=== PATIENT | female | born 1975 | race Hispanic/Latino ===

== ENCOUNTER → 2018-09-14 19:33 | Outpatient (ROUT) | payer SELFPAY ==
[2018-09-14 19:42] LABS: Add Manual Diff / Slide Review NO; Basophils Absolute Auto 0 /uL (0-100); Basophils Percent Auto 0.6 % (0-2); Eosinophils Absolute Auto 200 /uL (0-450); Eosinophils Percent Auto 2.5 % (2-4); Hemoglobin 12.7 g/dL (12.0-16.0); Lymphocytes Absolute Auto 2400 /uL (1100-4500); Lymphocytes Percent Auto 39.1 % (25-40); Mean Corpuscular HGB Conc 32.7 % (30-36); Mean Corpuscular Hemoglobin 30.2 PG (26-34); Mean Corpuscular Volume 92.4 fL (80-100); Monocytes Absolute Auto 400 /uL (0-900); Monocytes Percent Auto 7.2 % (3-14); Neutrophils Absolute Auto 3100 /uL (1500-7000); Neutrophils Percent Auto 50.6 % (50-75); Platelet Count 213 X10^3/uL (150-400); Red Blood Cell Count 4.22 X10^6/uL (4.0-5.2); Red Cell Distribution Width 13.4 % (11.6-14.8); White Blood Cell Count 6.2 X10^3/uL (4.5-11.0)
[2018-09-14 20:00] LABS: Erythrocyte Sedimentation Rate 7 MM/HR (0-20)
[2018-09-14 20:02] LABS: Alanine Aminotransferase 27 IU/L (9-52); Albumin Globulin Ratio 1.4 (1.0-2.8); Alkaline Phosphatase 93 U/L (38-126); Aspartate Aminotransferase 59 IU/L (14-36); BUN Creatinine Ratio 33.3 (6-22); Bilirubin Total 0.2 mg/dL (0.2-1.3); Blood Urea Nitrogen 20 mg/dL (7-17); Calcium 8.5 mg/dL (8.4-10.2); Carbon Dioxide 23 mmol/L (22-32); Chloride 109 mmol/L (98-107); Cholesterol 172 mg/dL (140-199); Estimated Glomerular Filt Rate > 60.0 mL/min (>60); Globulin 2.8 g/dL (1.7-4.1); Glucose 103 mg/dL (70-100); HDL Cholesterol 42 mg/dL (40-60); HEMOLYSIS < 15 (0-50); LDL Cholesterol Calculated 86 mg/dL (<100); Sodium 139 mmol/L (137-145); Total Protein 6.8 g/dL (6.3-8.2); Triglycerides 218 mg/dL (35-150)
[2018-09-14 20:06] LABS: Hemoglobin A1C% w Est Avg Glu 5.4 % (4.0-6.0)
== END ==
PROVIDERS: Visit Provider Nurse Practitioner Acute Care
DX: Z13.1 Encounter for screening for diabetes mellitus (principal); Z72.89 Other problems related to lifestyle
CPT/HCPCS: 80053; 80061; 83036; 85025; 85651

== ENCOUNTER 2024-07-13 12:57 | Emergency (ER) | payer OTHER, SELFPAY ==
[2024-07-13 13:16] VITALS: BP 115/65; PULSE 70; RESP 16; TEMP 36.6; O2SAT 98; BMI 22.8
--- NOTE | 2024-07-13 13:32 | DI.CT.S_ITS ---
PROCEDURE: CT FACIAL BONES WO CON INDICATIONS: cut on head TECHNIQUE: Noncontrast 2.5 mm thick axial images acquired from the mandible through the frontal sinuses, with coronal and sagittal reformatting. For radiation dose reduction, the following was used: automated exposure control, adjustment of mA and/or kV according to patient size. COMPARISON: None. FINDINGS: Image quality: Excellent. Bones and teeth: Orbital martínez are intact. Sinus martínez show no fracture or deformity. Nasal bones and septum are intact. Visualized portions of the mandible demonstrate no fractures or subluxation. Zygomatic arches are intact. Pterygoid plates are intact. Visualized portions of the skull base and auditory canals are intact. Sinuses: Mild mucosal thickening can be seen within the inferior right maxillary sinus. A left-sided bhupinder bullosa can be seen. The ostiomeatal complexes are patent, yet they are constitutionally narrowed, with bilateral Eric cells. Soft tissues: No edema, masses, or fluid collections. No enlarged lymph nodes. No soft tissue lacerations or debris. Vascular: Visualized vascular structures appear normal in the absence of contrast. Bony vascular foramina and canals are intact. IMPRESSION: No displaced facial bone fracture is seen. Dictated by: Dwayne Jeffery M.D. on 07/13/2024 at 12:54 Approved by: Dwayne Jeffery M.D. on 07/13/2024 at 12:56
[2024-07-13] MEDS: IBUPROFEN 400 MG TABLET PO (13:55)
[2024-07-13] MEDS: ACETAMINOPHEN 325 MG TABLET 650 MG PO (13:55)
--- NOTE | 2024-07-13 14:01 | ED_ITS ---
HPI - Pediatric HENT <LINDA Honeycutt - Last Filed: 07/13/24 14:19> General Chief complaint: Nasal Problem Stated complaint: Cut on head Time Seen by Provider: 07/13/24 13:30 History of Present Illness HPI Narrative: 48-year-old female, non-Indonesian speaking, presents to the emergency department with facial pain and swelling secondary to a incident at [employer]. Patient reports that a machine kicked up multiple frozen fish that hit her in the face. Patient denies any loss of consciousness, injury to her eyes or difficulty opening or closing her mouth. 1 cm cut to bridge of nose with no active bleeding. Patient is unsure of when she last received a tetanus shot. Patient's field service representative present for interpretation. Related Data Home Medications Medication Instructions Recorded Confirmed No Known Home Medications 07/13/24 07/13/24 Allergies Allergy/AdvReac Type Severity Reaction Status Date / Time No Known Drug Allergies Allergy Verified 07/13/24 13:20 Pediatric Review of Systems <LINDA Honeycutt - Last Filed: 07/13/24 14:19> Review of Systems: Narrative: See HPI. GENERAL: Denies chills, fatigue, fever, sweats. HEENT: Denies sinus pain, ear pain, sore throat, difficulty swallowing, dizziness. Endorses facial pain. RESPIRATORY: Denies dyspnea, cough, wheezing, sputum. CARDIOVASCULAR: Denies chest pain, palpitations, edema. MSK: Denies weakness, joint pain, or bony pain. SKIN: Denies rash, skin lesions, or pruritis. NEUROLOGIC: Denies weakness, dizziness, headache, numbness, confusion. Patient History <LINDA Honeycutt - Last Filed: 07/13/24 14:19> Social History Smoking Status: Never smoker Smoking Status: Never smoker Pediatric Exam <LINDA Honeycutt - Last Filed: 07/13/24 14:19> Narrative Physical exam: Exam Narrative: GENERAL: This is a well-nourished, well-developed patient, in no acute distress. HEAD: Traumatic. Normocephalic. Mild swelling noted to nasal region. 1 cm superficial cut to bridge of nose with no active bleeding. EYES: Pupils equal round and reactive. Extraocular motions intact. No scleral icterus, injection or drainage. ENT: Nose without bleeding, purulent drainage. Throat without erythema, tonsillar hypertrophy or exudate. Uvula midline. Airway patent. TMs and canals clear. No sinus tenderness. No TMJ tenderness. NECK: Trachea midline. No JVD or lymphadenopathy. Nontender. RESPIRATORY: Normal respiratory rate and effort. MSK: Moves all extremities. Normal range of motion, no clubbing or edema. Neurovascularly intact. NEURO: A&O x 3. SKIN: Warm, dry, no rashes or lesions noted. Initial Vital Signs Initial Vital Signs: Vital Signs Temperature 98 F 07/13/24 13:16 Pulse Rate 70 07/13/24 13:16 Respiratory Rate 16 07/13/24 13:16 Blood Pressure 115/65 07/13/24 13:16 Pulse Oximetry 98 07/13/24 13:16 Oxygen Delivery Method Room Air 07/13/24 13:16 Reviewed <Ashley Subramanian MD - Last Filed: 07/14/24 08:14> Initial Vital Signs Initial Vital Signs: Vital Signs Temperature 98 F 07/13/24 13:16 Pulse Rate 70 07/13/24 13:16 Respiratory Rate 16 07/13/24 13:16 Blood Pressure 115/65 07/13/24 13:16 Pulse Oximetry 98 07/13/24 13:16 Oxygen Delivery Method Room Air 07/13/24 13:16 Course <LINDA Honeycutt - Last Filed: 07/13/24 14:19> Orders Ordered: Discontinued Medications Acetaminophen (Acetaminophen 325 Mg Tablet) 650 mg PO NOW ONE Stop: 07/13/24 13:33 Last Admin: 07/13/24 13:55 Dose: 650 mg Documented By: HEATHER Diphtheria/Tetanus/Acell Pertussis (Tet,Diph,Pertuss(Acell),Vac/Pf 0.5 Ml Syringe) 0.5 ml IM .ONCE ONE Stop: 07/13/24 14:08 Last Admin: 07/13/24 14:15 Dose: 0.5 ml Documented By: HEATHER Ibuprofen (Ibuprofen 400 Mg Tablet) 400 mg PO NOW ONE Stop: 07/13/24 13:33 Last Admin: 07/13/24 13:55 Dose: 400 mg Documented By: HEATHER Vital Signs Vital signs: Vital Signs - 8 hr 07/13/24 13:16 Temperature 98 F Pulse Rate 70 Respiratory Rate 16 Blood Pressure 115/65 Pulse Oximetry 98 Oxygen Delivery Method Room Air <Ashley Subramanian MD - Last Filed: 07/14/24 08:14> Orders Ordered: Discontinued Medications Acetaminophen (Acetaminophen 325 Mg Tablet) 650 mg PO NOW ONE Stop: 07/13/24 13:33 Last Admin: 07/13/24 13:55 Dose: 650 mg Documented By: HEATHER Diphtheria/Tetanus/Acell Pertussis (Tet,Diph,Pertuss(Acell),Vac/Pf 0.5 Ml Syringe) 0.5 ml IM .ONCE ONE Stop: 07/13/24 14:08 Last Admin: 07/13/24 14:15 Dose: 0.5 ml Documented By: HEATHER Ibuprofen (Ibuprofen 400 Mg Tablet) 400 mg PO NOW ONE Stop: 07/13/24 13:33 Last Admin: 07/13/24 13:55 Dose: 400 mg Documented By: HEATHER Vital Signs Vital signs: Vital Signs - 8 hr 07/13/24 13:16 Temperature 98 F Pulse Rate 70 Respiratory Rate 16 Blood Pressure 115/65 Pulse Oximetry 98 Oxygen Delivery Method Room Air Medical Decision Making <LINDA Honeycutt - Last Filed: 07/13/24 14:19> Differential Diagnosis Differential Diagnosis: Facial contusion/injury Imaging Data CT scan - head: Radiologist's Impression: [place] [address] CT Scan Report Signed Patient: BRENDEN DASILVA MR#: [id number] : 1975 Acct:[id number] Age/Sex: 48 / F Date of Service: 07/13/24 Loc: ED Accession Number: [id number] Procedure: CT facial bones wo con Ordering Provider: Ashley Subramanian MD PROCEDURE: CT FACIAL BONES WO CON INDICATIONS: cut on head TECHNIQUE: Noncontrast 2.5 mm thick axial images acquired from the mandible through the frontal sinuses, with coronal and sagittal reformatting. For radiation dose reduction, the following was used: automated exposure control, adjustment of mA and/or kV according to patient size. COMPARISON: None. FINDINGS: Image quality: Excellent. Bones and teeth: Orbital martínez are intact. Sinus martínez show no fracture or deformity. Nasal bones and septum are intact. Visualized portions of the mandible demonstrate no fractures or subluxation. Zygomatic arches are intact. Pterygoid plates are intact. Visualized portions of the skull base and auditory canals are intact. Sinuses: Mild mucosal thickening can be seen within the inferior right maxillary sinus. A left-sided bhupinder bullosa can be seen. The ostiomeatal complexes are patent, yet they are constitutionally narrowed, with bilateral Eric cells. Soft tissues: No edema, masses, or fluid collections. No enlarged lymph nodes. No soft tissue lacerations or debris. Vascular: Visualized vascular structures appear normal in the absence of contrast. Bony vascular foramina and canals are intact. IMPRESSION: No displaced facial bone fracture is seen. Dictated by: Dwayne Jeffery M.D. on 07/13/2024 at 12:54 Approved by: Dwayne Jeffery M.D. on 07/13/2024 at 12:56 MDM Narrative Medical decision making narrative: 48-year-old female with facial trauma at work earlier today. Facial CT ordered in triage and was negative for fracture. Tylenol and ibuprofen given for pain control. Assessment was encouraging and no red flag symptoms noted. Recommended cold or cool compress to face for comfort and continued use of Tylenol or ibuprofen as needed for discomfort. Tetanus status updated. L&I paperwork completed its entirety. Discussed plan of care and return precautions with patient and hospice administrator, who verbalized understanding and was agreeable to course of action. Discharge Plan Departure Patient Disposition: Home Clinical Impression: Contusion of face Qualifiers: Encounter type: initial encounter Qualified Code(s): S00.83XA - Contusion of other part of head, initial encounter Instructions: DI for Contusion Activity Restrictions/Additional Instructions: *You have been diagnosed with a facial contusion. Your advanced imaging was normal and no signs of fracture exists. Recommend supportive care that includes cool or cold compress to the face to reduce swelling and Tylenol or ibuprofen as needed for discomfort. You may apply a antibiotic ointment to the cut on your nose to prevent infection. Your L&I paperwork has been completed. Please return to the emergency department if symptoms worsen or follow up with family doctor as needed. *What to do: *Please continue to take your regular medications as directed. [ ] New medication prescriptions sent to your pharmacy: [ ] [ ] New medication written as a paper prescription [x ] No new medications given *Please follow up with your primary care provider in 2-3 days, call for an appointment. Let them know you were seen in the Emergency Department and that we ask that you be seen in follow up. We will electronically transmit a record of today's note if your PCP is in our system *If you do not have a primary care provider please contact the [facility] Resource line at [phone]. They will ask some questions about your medical history and help get you set up with a doctor in the community. ? Return to ER if you should have any new, worsening or concerning symptoms, such as worsening pain, severe headache, confusion, chest pain, difficulty breathing, fever greater than 101 F, shaking chills, persistent vomiting to the point that you cannot drink fluids, or other new or worsening symptoms. Prescriptions: No Action No Known Home Medications Stand Alone Forms: Patient Portal/API/Survey ED Sign-out <Ashley Subramanian MD - Last Filed: 07/14/24 08:14> Cosign ED Attending Cosmkature Attestation: I was immediately available in the department for consultation throughout this patient's visit. Ashley Subramanian MD
--- NOTE | 2024-07-13 14:02 | PC.NURSE ---
Hit in face with frozen fish at work. Denies pain in teeth, or trouble swallowing. Has pain around her nose and multiple scratches. Slight swelling around nasal area. Nose bleeding from nose. No bruising or swelling in eyes. Eyes clear, no hemorrhage. ears clear, no drainage. no nausea, vomiting.
[2024-07-13] MEDS: TET,DIPH,PERTUSS(ACELL),VAC/PF 0.5 ML SYRINGE IM (14:15)
[2024-07-13 14:27] VITALS: BP 121/65; PULSE 65; RESP 16; O2SAT 65
== END 2024-07-13 14:32 | disposition home or self-care (01) ==
PROVIDERS: Emergency Provider Registered Nurse
DX: S00.83XA Contusion of other part of head, initial encounter (principal); W22.8XXA Striking against or struck by other objects, initial encounter
CPT/HCPCS: 70486; 90471; 99283; 99284; 90715

== ENCOUNTER 2025-01-24 13:32 | Emergency (ER) | payer OTHER, SELFPAY ==
[2025-01-24 13:45] VITALS: BP 131/62; PULSE 63; RESP 16; TEMP 37; O2SAT 99; BMI 20.1
--- NOTE | 2025-01-24 13:51 | DI.RAD.S_ITS ---
PROCEDURE: XR CHEST 1V INDICATIONS: Chest Pain TECHNIQUE: One view of the chest was acquired. COMPARISON: None. FINDINGS: Surgical changes and devices: None. Lungs and pleura: Lungs are clear. No pleural effusions or pneumothorax. Mediastinum: Mediastinal contours appear normal. Heart size is normal. Bones and chest wall: No suspicious bony lesions. Overlying soft tissues appear unremarkable. IMPRESSION: No acute cardiopulmonary abnormality is seen. Dictated by: Dwayne Jeffery M.D. on 01/24/2025 at 13:39 Approved by: Dwayne Jeffery M.D. on 01/24/2025 at 13:39
--- NOTE | 2025-01-24 13:51 | EKG_ITS ---
[facility] [address] [place] [address] Test Date: 2025-01-24 Pat Name: Tosin Reynoso Department: [facility] Room: Gender: Female [employer]: : 1975 Requested By: Order Number: [id number] Reading MD: Raul Terry MD Measurements Intervals Mobile Rate: 59 P: 47 FL: 146 QRS: 31 QRSD: 80 T: 25 QT: 436 QTc: 431 Interpretive Statements Sinus bradycardia Electronically Signed On 01-24-2025 16:48:11 PDT by Raul Terry MD
[2025-01-24 14:14] LABS: Add Manual Diff / Slide Review NO; Hematocrit 39.2 % (36-46); Hemoglobin 13.4 g/dL (12.0-16.0); Lymphocytes Absolute Auto 1900 /uL (1100-4500); Mean Corpuscular HGB Conc 34.2 % (30-36); Mean Corpuscular Hemoglobin 31.2 PG (26-34); Mean Corpuscular Volume 91.1 fL (80-100); Platelet Count 209 X10^3/uL (150-400)
[2025-01-24 14:17] VITALS: PULSE 65; RESP 21; O2SAT 97
[2025-01-24 14:22] LABS: INR 1.0 (0.9-1.3); Prothrombin Time 10.9 SECONDS (9.4-12.5)
[2025-01-24 14:24] LABS: PTT Partial Thromboplastin Tim 29 SECONDS (25.1-36.5)
[2025-01-24 14:26] LABS: Alanine Aminotransferase 16 IU/L (<35); Albumin 4.4 g/dL (3.5-5.0); Albumin Globulin Ratio 1.4 (1.0-2.8); Alkaline Phosphatase 83 U/L (38-126); Blood Urea Nitrogen 15 mg/dL (7-17); Calcium 8.6 mg/dL (8.4-10.2); Carbon Dioxide 22 mmol/L (22-32); Chloride 107 mmol/L (98-107); Creatine Kinase 84 U/L (30-135); Estimated Glomerular Filt Rate > 60 mL/min (>60); Globulin 3.2 g/dL (1.7-4.1); Glucose 104 mg/dL (70-99); HEMOLYSIS < 15 (0-50); Lipase 37 U/L (23-300); Magnesium 2.1 mg/dL (1.6-2.3); Potassium 3.9 mmol/L (3.4-5.1); Sodium 137 mmol/L (137-145); Total Protein 7.6 g/dL (6.3-8.2)
[2025-01-24 14:30] VITALS: BP 107/56; PULSE 59; RESP 15; O2SAT 99
[2025-01-24 14:37] LABS: NT-proBNP (BNP-Adult 18+) 20 pg/mL (<125); Troponin I < 0.012 ng/mL (0.01-0.034)
[2025-01-24 15:00] VITALS: BP 112/67; PULSE 59; RESP 15; O2SAT 98
[2025-01-24 15:30] VITALS: BP 115/70; PULSE 58; RESP 20; O2SAT 98
--- NOTE | 2025-01-24 15:44 | ED.CHESTPAIN ---
HPI - Chest Pain General Chief Complaint: Chest Pain Stated Complaint: Chest pain/ high blood pressure Time Seen by Provider: 01/24/25 14:58 Source: patient Mode of arrival: Ambulatory Limitations: language barrier History of Present Illness HPI narrative: This is a 49-year-old female here for chest pain. Patient says that she had chest pain early this morning in for a while it was fairly ?hard?. Her chest pain lasts for only sec at a time and is intermittent. She has had some of it since then and came to be seen. Having occasional mild intermittent chest pain when seen. It is not associated with shortness of breath nausea or diaphoresis. She was also seen at [facility] 5 days ago with a similar complaint and was discharged. She also has seen her primary care provider and has a cardiology referral pending. The patient has no family history of coronary disease no history of elevated cholesterol, hypertension or diabetes. Her chest pain is not exertional. He has not had fevers or cough has not had leg swelling. Related Data Previous Rx's ?Medication ?Instructions ?Recorded aspirin 81 mg tablet 81 mg PO DAILY #30 tabs 01/24/25 omeprazole 40 mg capsule,delayed 40 mg PO DAILY #30 caps 01/24/25 release Allergies Allergy/AdvReac Type Severity Reaction Status Date / Time No Known Drug Allergies Allergy Verified 07/13/24 13:20 Patient History Social History Smoking Status: Never smoker Smoking Status: Never smoker Exam Initial Vital Signs Initial Vital Signs: Vital Signs Temperature 98.6 F 01/24/25 13:45 Pulse Rate 63 01/24/25 13:45 Respiratory Rate 16 01/24/25 13:45 Blood Pressure 131/62 01/24/25 13:45 Pulse Oximetry 99 01/24/25 13:45 Oxygen Delivery Method Room Air 01/24/25 13:45 vital signs are reviewed Const General: cooperative and No acute distress [facility] Head: normocephalic and atraumatic Face and sinus: face symmetric Mouth: moist mucous membranes Eyes Pupils: PERRL EOM: EOM intact bilaterally Neck Neck: normal visual inspection, supple and No JVD Chest Chest: normal inspection of the chest Other: Pressure on chest does not reproduce her chest pain Resp Effort & Inspection: normal respiratory effort and able to speak in complete sentences Auscultation: clear to auscultation bilaterally Cardio Rate: regular rate Rhythm: regular rhythm Heart Sounds: no murmurs Other: Normal heart rate GI Inspection: normal to inspection Palpation: soft Auscultation: normal bowel sounds Back/Spine/Pelvis Back: normal to inspection Skin General: no rashes or lesions noted and warm Neuro General: patient alert, patient oriented x3 and moves all extremities Speech: speech normal Extrem General: full ROM Psych Appearance: grossly normal Course Orders Ordered: ED Orders 01/24/25 13:51 XR chest 1V Stat EKG-12 Lead Stat 01/24/25 14:02 Complete Blood Count AUTO DIFF Stat Comprehensive Metabolic Panel Stat Lipase Stat Magnesium Stat NT-proBNP (BNP-Adult 18+) Stat PTT Partial Thromboplastin Ghassan Stat Prothrombin Time INR Stat Troponin & CK Cardiac Panel Stat Vital Signs Vital signs: Vital Signs - 8 hr 01/24/25 13:45 01/24/25 14:17 01/24/25 14:30 Temperature 98.6 F Pulse Rate 63 65 59 L Respiratory Rate 16 21 15 Blood Pressure 131/62 Pulse Oximetry 99 97 99 Oxygen Delivery Method Room Air 01/24/25 14:30 01/24/25 15:00 01/24/25 15:00 Temperature Pulse Rate 59 L Respiratory Rate 15 Blood Pressure 107/56 L 112/67 Pulse Oximetry 98 Oxygen Delivery Method 01/24/25 15:30 01/24/25 15:30 Temperature Pulse Rate 58 L Respiratory Rate 20 Blood Pressure 115/70 Pulse Oximetry 98 Oxygen Delivery Method MDM - Chest Pain Lab Data Lab results narrative: CBC with diff and CMP are unremarkable, troponin is normal lipase is normal proBNP is normal 01/24/25 14:02 01/24/25 14:02 Labs: Lab Results 01/24/25 Range/Units 14:02 WBC 5.1 (4.5-11.0) X10^3/uL RBC 4.31 (4.0-5.2) X10^6/uL Hgb 13.4 (12.0-16.0) g/dL Hct 39.2 (36-46) % MCV 91.1 (80-100) fL MCH 31.2 (26-34) PG MCHC 34.2 (30-36) % RDW 13.3 (11.6-14.8) % Plt Count 209 (150-400) X10^3/uL Neut % (Auto) 52.4 (50-75) % Lymph % (Auto) 37.3 (25-40) % Carlisle % (Auto) 6.7 (3-14) % Eos % (Auto) 2.5 (2-4) % Baso % (Auto) 1.1 (0-2) % Neut # (Auto) 2700 (7183-3920) /uL Lymph # (Auto) 1900 (3993-8682) /uL Carlisle # (Auto) 300 (0-900) /uL Eos # (Auto) 100 (0-450) /uL Baso # (Auto) 100 (0-100) /uL PT 10.9 (9.4-12.5) SECONDS INR 1.0 (0.9-1.3) APTT 29 (25.1-36.5) SECONDS Sodium 137 (137-145) mmol/L Potassium 3.9 (3.4-5.1) mmol/L Chloride 107 (98-107) mmol/L Carbon Dioxide 22 (22-32) mmol/L BUN 15 (7-17) mg/dL Creatinine 0.47 L (0.52-1.04) mg/dL Estimated GFR > 60 (>60) mL/min BUN/Creatinine Ratio 31.9 H (6-22) Glucose 104 H (70-99) mg/dL Calcium 8.6 (8.4-10.2) mg/dL Magnesium 2.1 (1.6-2.3) mg/dL Total Bilirubin 0.4 (0.2-1.3) mg/dL AST 29 (14-36) IU/L ALT 16 (<35) IU/L Alkaline Phosphatase 83 (38-126) U/L Total Creatine Kinase 84 (30-135) U/L Troponin I < 0.012 (0.01-0.034) ng/mL NT-Pro-B Natriuret Pep 20 (<125) pg/mL Total Protein 7.6 (6.3-8.2) g/dL Albumin 4.4 (3.5-5.0) g/dL Globulin 3.2 (1.7-4.1) g/dL Albumin/Globulin Ratio 1.4 (1.0-2.8) Lipase 37 (23-300) U/L Imaging Data Chest x-ray: My Impression: Independent review of chest x-ray, no acute findings Radiologist's Impression: Radiology report reviewed, no acute findings ECG Data Attestation: I personally reviewed and interpreted this ECG as follows: (ECG shows normal sinus rhythm at [address] segment changes no previous infarction [time] EKG is normal sinus rhythm rate [ ] and free of any signs of ischemia or ectopy. No ST segmental elevation or depression. No T wave inversions) MDM Narrative Medical decision making narrative: 49-year-old female with an episode of atypical chest pain. Atypical feature includes a very brief duration of her chest pain. She has no cardiac risk factors. I note she was seen at another facility with a similar complaint recently, workup at that time also was reported by the patient to be negative. Based on a not concerning history young age lack of risk factors and normal EKG with normal troponin her heart score is 1. I did consider the fact that this was her current episode for chest pain however her pain is of a atypical nature. I did discuss the possibility of admission for additional testing, utilizing shared decision-making the patient did not wish to pursue this at this time. History is obtained with the assistance of an professional builder, I confirmed with the patient that she has a family member who speaks [place]ese they can assist her with discharge instructions prior to providing discharge instructions in Guyanese and also she seems to have a good command of Gu[place]ese. Alternative diagnosis including pulmonary embolism and pneumonia and acute aortic syndrome were considered and felt unlikely. I did start her on omeprazole empirically and aspirin 81 mg daily. Discharge Plan Departure Patient Disposition: Home Clinical Impression: Atypical chest pain Activity Restrictions/Additional Instructions: Emergency department evaluation today is reassuring. I do not think that your chest pain is coming from your heart. It may be from your esophagus, I have sent a prescription for omeprazole to your pharmacy take this daily. I would like you to take an 81 mg aspirin daily. This would help prevent blockages of blood vessels if it is from your heart. Follow up with Cardiology as recommended by your primary care provider. I also want you to know that if you are having recurrent chest pain that lasts for 20 minutes or more is associated with shortness of breath nausea or sweats or if it is severe pain you should be seen in the emergency department nearest you. You should call 911 if this is occurring. Prescriptions: New omeprazole 40 mg capsule,delayed release(DR/EC) 40 mg PO DAILY Qty: 30 0RF aspirin 81 mg tablet 81 mg PO DAILY Qty: 30 0RF Stand Alone Forms: Patient Portal/API
== END 2025-01-24 15:50 | disposition home or self-care (01) ==
PROVIDERS: Emergency Provider Emergency Medicine
DX: R07.89 Other chest pain (principal)
CPT/HCPCS: 36415; 71045; 80053; 82550; 83690; 83735; 83880; 84484; 85025; 85610; 85730; 93005; 93010; 99283; 99284